=== PATIENT | female | born 1960 | race Caucasian/White ===

== ENCOUNTER 2022-09-13 08:04 | Emergency (ER) | payer OTHER ==
[2022-09-13 08:17] VITALS: BP 196/82; PULSE 86
== END 2022-09-13 10:10 | disposition home or self-care (01) ==
LOC: JP.ED 08:04
DX: S63.502A Unspecified sprain of left wrist, initial encounter (principal); S80.01XA Contusion of right knee, initial encounter; S80.02XA Contusion of left knee, initial encounter; S00.81XA Abrasion of other part of head, initial encounter; S00.31XA Abrasion of nose, initial encounter; S00.211A Abrasion of right eyelid and periocular area, initial encounter; E78.00 Pure hypercholesterolemia, unspecified; E11.9 Type 2 diabetes mellitus without complications; Z79.82 Long term (current) use of aspirin; Z79.899 Other long term (current) drug therapy; W22.09XA Striking against other stationary object, initial encounter; S60.312A Abrasion of left thumb, initial encounter
CPT/HCPCS: 73110-26-LT; 73110-LT; 73565; 73565-26; 99283